=== PATIENT | female | born 1960 | race Caucasian/White ===

== ENCOUNTER 2018-03-28 22:47 | Emergency (ER) | payer OTHER ==
[~2018-03-28] VITALS: Ht 167.6 cm; Wt 99.3 kg
[~2018-03-28 22:47] MED LIST: ACYCLOVIR200 MG; ALLOPURINOL100 MG PO; D3-50001 TAB PO; NATURAL IRON65 MG PO; REVLIMID10 MG PO; ROBAXIN500 MG PO
[2018-03-28 23:00] VITALS: Ht 167.6 cm; Wt 99.3 kg
[2018-03-28 23:50] LABS: RED CELL DISTRIBUTION WIDTH 14.3 % (11.5-14.5)
[2018-03-29 00:06] LABS: CALCIUM 9.3 mg/dL (8.5-10.1); CARBON DIOXIDE 20.2 mmol/L (21-32); CREATININE SERUM 1.5 mg/dL (0.6-1.0); POTASSIUM SERUM 3.6 mmol/L (3.5-5.1)
[2018-03-29 00:19] LABS: SEGMENTED NEUTROPHILS 60 % (37-75)
[2018-03-29 00:20] LABS: BAND NEUTROPHIL 16 % (0-10); MONOCYTE 8 % (0-7); rbc morphology (normal/abnorm) NORMAL (NORMAL)
[2018-03-29 00:21] LABS: PLATELET COUNT 79 x10^3mcL (130-400)
[2018-03-29 00:26] LABS: BILIRUBIN TOTAL 0.3 mg/dL (0.20-1.00); TOTAL PROTEIN, SERUM 7.2 g/dL (6.4-8.2)
[2018-03-29 00:28] LABS: FREE T4 1.44 ng/dL (0.76-1.46); FREE THYROXINE INDEX 4.8 ug/dL (1.4-4.5); T4(THYROXINE) 12.6 ug/dL (4.7-13.3)
[2018-03-29 00:30] LABS: ALBUMIN 3.1 g/dL (3.4-5.0); CK-MB 0.8 ng/mL (0-3.6)
[2018-03-29 00:31] LABS: C REACTIVE PROTEIN 13.2 mg/dL (<=0.9)
[2018-03-29 00:52] LABS: T3 TOTAL 0.75 ng/mL
[2018-03-29 01:16] LABS: ERYTHROCYTE SED RATE 90 mm/hr (0-30)
[2018-03-29 01:28] LABS: UA SPECIFIC GRAVITY >=1.030 (1.005-1.035); microscopic required? YES; urine erythrocyte TRACE (NEGATIVE)
[2018-03-29 01:54] VITALS: BP 117/70
== END 2018-03-29 01:55 | disposition home or self-care (01) ==
LOC: ED 22:47
PROVIDERS: Specialist
DX: J20.9 Acute bronchitis, unspecified (principal); D70.9 Neutropenia, unspecified; C90.00 Multiple myeloma not having achieved remission; R55 Syncope and collapse; M10.9 Gout, unspecified; K58.9 Irritable bowel syndrome, unspecified
CPT/HCPCS: 36600; 84439; 87804; J7030; J7613; J7644; Q0092

== ENCOUNTER 2018-05-02 20:46 | Inpatient (IN) | payer OTHER ==
[~2018-05-02] VITALS: Ht 162.6 cm; Wt 104.5 kg
[~2018-05-02 20:46] MED LIST changes: -ACYCLOVIR200 MG
[2018-05-02 20:55] VITALS: Ht 162.6 cm; Wt 104.5 kg
--- NOTE | 2018-05-02 21:10 | NUR ---
PT C/O ANKLE PAIN X1 DAY. PT STS THAT SHE WORE BOOTS THAT SHE FELT WERE "CUTTING INTO" HER ANKLE, LAST NIGHT TO HER SON'S SPORTING EVENT. PT STS THAT SHE NOTICED SWELLING, AND 10/10 THROBBING PAIN IN HER ANKLE THIS A.M. SWELLING AND REDNESS NOTED TO THE LEFT ANKLE. CMS INTACT. PT DENIES FEVER/CHILLS, DENIES N/V/D. PT IS AWAKE AND ALERT. NAD NOTED AT THIS TIME. AWAITING MSE
[2018-05-02 22:12] LABS: CARBON DIOXIDE 20.8 mmol/L (21-32); CREATININE SERUM 1.5 mg/dL (0.6-1.0); POTASSIUM SERUM 4.4 mmol/L (3.5-5.1)
--- NOTE | 2018-05-02 22:12 | NUR ---
MEDICATION ADMINISTERED PER MD ORDER
[2018-05-02 22:13] LABS: BASOPHIL % 0 % (0-2); PLATELET COUNT 119 x10^3mcL (130-400); RED CELL DISTRIBUTION WIDTH 17.5 % (11.5-14.5)
--- NOTE | 2018-05-02 22:14 | NUR ---
US AT BEDSIDE
[2018-05-02 22:18] LABS: ALBUMIN 3.2 g/dL (3.4-5.0); BILIRUBIN TOTAL 0.2 mg/dL (0.20-1.00)
--- NOTE | 2018-05-02 22:55 | NUR ---
PT REPORTS NO PAIN RELIEF AFTER MEDICATION ADMIN. DR LEBLANC MADE AWARE
[2018-05-03] MEDS ORDERED: APAP/HYDROCODON1 T13 PO (00:29)
[2018-05-03] MEDS ORDERED: OXYCODONE HYDROC5 M2 PO (00:29)
[2018-05-03] MEDS ORDERED: ALPRAZOLAM1 MG PO (00:29)
[2018-05-03] MEDS ORDERED: GRALISE600 MG PO ×2 (00:30→11:41)
[2018-05-03] MEDS ORDERED: ASPIRIN CHILDRE81 MG PO (00:31)
--- NOTE | 2018-05-03 00:45 | NUR ---
X-RAY AT BEDSIDE
[2018-05-03 00:52] LABS: microscopic required? NO
[2018-05-03 01:00] LABS: UA SPECIFIC GRAVITY 1.015 (1.005-1.035); urine erythrocyte NEGATIVE (NEGATIVE)
--- NOTE | 2018-05-03 01:19 | NUR ---
MEDICATION GIVEN PER MD ORDER
--- NOTE | 2018-05-03 01:25 | NUR ---
REPORT GIVEN TO TERESSA CUEVAS
[2018-05-03 01:26] LABS: MAGNESIUM 1.9 mg/dL (1.8-2.4); PHOSPHOROUS 3.7 mg/dL (2.5-4.9)
[2018-05-03 01:55] VITALS: BP 119/83
--- NOTE | 2018-05-03 01:59 | NUR ---
RECEIVED PT FROM ED VIA [employer]. ORIENTED PT TO ROOM AND SURROUNDINGS. IV NOTED TO RAC PATENT AND INTACT. TELE 7 PLACED ON PT READING SR WITH ELEVATED T WAVE. INSTRUCTED PT ON THE USE OF CALL LIGHT FOR ASSISTANCE. ENDORSED PT TO PRIMARY NURSE WILDER
--- NOTE | 2018-05-03 02:15 | NUR ---
PT RESTING IN BED, NEW ADM. FROM ER , A/O X4, ADMIITED WITH COMPLAINTS OF LLE SWELLING, REDNESS AND PAIN. DENIES HEADACHE/DIZZINESS, BUT COMPLAINING OF PAIN 7/10 TO LT LEG, MEDICATED WITH ROXICODONE PO ORDERED. RESP. EVEN AND UNLABORED. LUNG SOUNDS CLEAR BILAT. ON ROOM AIR, SAT. 99%. NO ACUTE DISTRESS NOTED. AFEBRILE AND VITAL SIGNS STABLE. ON TELE #7, SR ON THE MONITOR, DENIES CHEST PAIN. ABD. SOFT, OBESE, BS ACTIVE, NO N/V NOTED. BRUISES TO ABD AND RLE. LLE SWOLLEN AND REDDENED. PULSES PALPABLE. ABLE TO MOVE ALL EXTS. PICTURES TAKEN AND DOCUMENTED.STARTED ON IVF, NS AT 100ML/HR, INFUSING VIA RAC. KEPT COMFORTABLE. CALL LIGHT WITHIN REACH. WILL CONTINUE TO MONITOR.
--- NOTE | 2018-05-03 03:15 | NUR ---
EYES CLOSED. APPEARS ASLEEP. EASILY AROUSABLE. LLE ELEVATED ON PILLOW. NO ACUTE DISTRESS NOTED. WILL CONTINUE TO MONITOR.
--- NOTE | 2018-05-03 03:45 | NUR ---
DOOZING OFF AND ON, COMPLAINING OF LLE , 07/30, MEDICATED WITH NORCO PO ORDERED. WILL CONTINUE TO MONITOR.
[2018-05-03 05:42] VITALS: BP 122/74
--- NOTE | 2018-05-03 06:19 | NUR ---
SLEEPING AT THIS TIME. EASILY AROUSABLE. RESP. EVEN AND UNLABORED, NO ACUTE DISTRESS NOTED. AFEBRILE AND VITAL SIGNS STABLE.IVF INTACT AND INFUSING WELL, SITE CLEAR. NO COMPLAINTS OF PAIN OR ANY DISCOMFORT AT THIS TIME. KEPT COMFORTABLE. WILL ENDORSE TO INCOMING NURSE.
--- NOTE | 2018-05-03 07:30 | NUR ---
PATIENT RESTING IN BED, FAMILY AT BEDSIDE. TELE MONITOR IN PLACE, DENIES CHEST PAIN. SWELLING AND REDNESS NOTED TO LLE. SCD IN PLACE, PATIENT ON ELIQUIS (SEE EMAR). PATIENT ON ROOM AIR, NO SOB NOTED. NS IV INFUSING TO RAC AT 100 ML/HR. NO REDNESS, SWELLING OR PAIN AT SITE. INSTRUCTED PATIENT TO CALL FOR ASSISTANCE WHEN NEEDED, CALL LIGHT WITHIN REACH. BED IN LOW POSITION, SIDE RAILS UP X2, FOR SAFETY PRECAUTION. WILL CONTINUE TO MONITOR.
[2018-05-03 08:01] LABS: AMPHETAMINE QUAL UR NONE DETECTED (See below)
[2018-05-03 08:30] VITALS: BP 118/72
--- NOTE | 2018-05-03 10:23 | NUR ---
PATIENT COMPLAIN OF SEVERE PAIN TO LLE 10/30, EDUCATED PATIENT IN RELAXTION TECHNQUES SUCH DEEP BREATHING, AND MEDICATED PT WITH NORCO PER PROTOCOL (SEE EMAR). WILL CONTINUE TO MONITOR.
[2018-05-03] MEDS ORDERED: REVLIMID5 MG PO (11:42)
[2018-05-03 12:10] VITALS: BP 101/54
[2018-05-03 13:29] LABS: BASOPHIL % 0.2 % (0-2); PLATELET COUNT 100 x10^3mcL (130-400); RED CELL DISTRIBUTION WIDTH 16.7 % (11.5-14.5)
[2018-05-03 14:57] LABS: CALCIUM 7.7 mg/dL (8.5-10.1); CARBON DIOXIDE 22.2 mmol/L (21-32); CREATININE SERUM 1.3 mg/dL (0.6-1.0); POTASSIUM SERUM 3.8 mmol/L (3.5-5.1)
[2018-05-03 16:30] VITALS: BP 109/65
--- NOTE | 2018-05-03 17:46 | NUR ---
PHYSICAL THERAPY AT BEDSIDE.
--- NOTE | 2018-05-03 18:27 | NUR ---
PATIENT RESTING IN BED. NO ACUTE CHANGES THROUGH OUT SHIFT, PT STABLE. TELE MONITOR IN PLACE, DENIES CHEST PAIN. NO SOB NOTED, ON ROOM AIR. NS IV TO RAC INFUSING AT 100ML/HR. NO REDNESS SWELLING OR PAIN AT SITE. CALL LIGHT WITHIN REACH, BED IN LOW POSITION. WILL ENDORSE REPORT TO NIGHT NURSE.
--- NOTE | 2018-05-03 19:15 | NUR ---
RECEIVED PT IN BED C/O LEFT LEG PAIN 11/30.WILL MEDICATE ORDERED. NO SOB NOTED.IV SITE PATENT AND INTACT. BED IN LOWEST POSITION,CALL LIGHT WITHIN REACH. WILL CONTINUE TO MONITOR.FAMILY AT BEDSIDE.
[2018-05-03 19:20] VITALS: BP 119/43
--- NOTE | 2018-05-03 20:11 | NUR ---
MEDICATED MORPHINE 2MG IVP ORDERED. PT C/O LEFT LEG 11/30.WILL CONTINUE TO MONITOR.
--- NOTE | 2018-05-03 20:50 | NUR ---
REASSESSED PT. PER PT STILL HAVING PAIN 08/30. SPOKE TO DR RANDLE REGARDING THE COMPLAIN. WAITING FOR NEW ORDER.
--- NOTE | 2018-05-03 21:32 | NUR ---
PT FEELS ANXIOUS. MEDIACTED XANAX 1MG PO ORDERED. WILL CONTINUE TO MONITOR.
--- NOTE | 2018-05-04 05:10 | NUR ---
PT AOX4.NO DISTRESS NOTED. DENIES ANY PAIN AT THIS TIME. BED IN LOWEST POSITION,CALL LIGHT WITHIN REACH. WILL CONTINUE TO MONITOR.
[2018-05-04 05:52] VITALS: BP 96/47
[2018-05-04 07:00] LABS: PLATELET COUNT 92 x10^3mcL (130-400); RED CELL DISTRIBUTION WIDTH 17.2 % (11.5-14.5)
--- NOTE | 2018-05-04 07:05 | NUR ---
RECEIVED REPORT FROM MILK BOTTLER NURSE. PATIENT RESTING COMFORTABLY IN BED AT THIS TIME. NO APPARENT DISTRESS OR DISCOMFORT NOTED. BREATHING EVEN AND UNLABORED. NO INDICATION OF CHEST PAIN AT THIS TIME. IV PATENT AND INTACT. ALL NEEDS ATTENDED TO. WILL CONTINUE TO MONITOR
--- NOTE | 2018-05-04 07:19 | NUR ---
CARE ENDORSED TO DAY NURSE
[2018-05-04 07:22] LABS: CALCIUM 8.4 mg/dL (8.5-10.1); CARBON DIOXIDE 24.8 mmol/L (21-32); CREATININE SERUM 1.3 mg/dL (0.6-1.0); POTASSIUM SERUM 4.2 mmol/L (3.5-5.1)
[2018-05-04 08:30] VITALS: BP 100/62
--- NOTE | 2018-05-04 08:55 | NUR ---
PATIENT C/O LEFT LEG PAIN AT THIS TIME. PRN MORPHINE ADMINISTERED (SEE EMAR) NO ADVERSE EFFECTS NOTED. ALL NEEDS ATTENDED TO. WILL CONTINUE TO MONITOR
--- NOTE | 2018-05-04 09:30 | NUR ---
ALL MORNING MEDICATIONS ADMINISTERED. PATIENT TOLERATED MEDICATIONS WELL. NO ADVERSE EFFECTS NOTED. ALL NEEDS ATTENDED TO. WILL CONTINUE TO MONITOR
--- NOTE | 2018-05-04 11:13 | NUR ---
PATIENT C/O STABBING LEFT LEG PAIN AT THIS TIME. PATIENT MEDICATED WITH PRN NORCO. NO ADVERSE EFFECTS NOTED. ALL QUESTIONS AND CONCERNS ADDRESSED. ALL NEEDS ATTENDED TO. WILL CONTINUE TO MONITOR
[2018-05-04 12:30] VITALS: BP 99/56
[2018-05-04 12:35] LABS: ATYPICAL LYMPH 3 %; BAND NEUTROPHIL 2 % (0-10); BASOPHIL 0 % (0-2); MONOCYTE 15 % (0-7); SEGMENTED NEUTROPHILS 71 % (37-75)
[2018-05-04 12:36] LABS: PLATELET MORPHOLOGY PLATELETS DECREASED; rbc morphology (normal/abnorm) ABNORMAL (NORMAL)
--- NOTE | 2018-05-04 13:00 | NUR ---
PATIENT SITTING UP IN BED EATING LUNCH AT THIS TIME. PATIENT C/O LEFT LEG PAIN AT THIS TIME. WILL MEDICATE ORDERED. ALL NEEDS ATTENDED TO. WILL CONTINUE TO MONITOR
--- NOTE | 2018-05-04 13:57 | NUR ---
ATTEMPTED FOR PHYSICAL THERAPY SESSION SCHEDULED, PATIENT FOUND IN THE BATHROOM WITH IV POLE ON TOW, C/O PAIN AND DO NOT WANT TO PARTICIPATE ON SKILLED SESSION TODAY
[2018-05-04 16:15] VITALS: BP 95/52
--- NOTE | 2018-05-04 17:57 | NUR ---
PRN PAIN MEDICATIONS ADMINISTERED AT THIS TIME. NO ADVERSE EFFECTS NOTED. ALL QUESTIONS AND CONCERNS ADDRESSED. ALL NEEDS ATTENDED TO. WILL CONTINUE TO MONITOR
--- NOTE | 2018-05-04 18:58 | NUR ---
PATIENT RESTING COMFORTABLY IN BED AT THIS TIME. NO APPARENT DISTRESS NOTED IV PATENT AND INTACT. ALL QUESTIONS AND CONCERNS ADDRESSED. SAFETY PRECAUTIONS MAINTAINED. ALL NEEDS ATTENDED TO. WILL ENDORSE ALL CARE TO ELECTROPLATING SALES REPRESENTATIVE NURSE
[2018-05-04 20:26] VITALS: BP 118/61
--- NOTE | 2018-05-04 23:25 | NUR ---
PATIENT RECEIVED AWAKE, ALERT, ORIENTED X4 IN BED. FAMILY MEMBERS AT THE BEDSIDE. RESPIRATION EVEN AND UNLABORED, ON ROOM AIR. ONGOING 0.9% NS AT 100 CC/HR INFUSING WELL AT THE RIGHT ANTECUBITAL AREA. SWELLING/REDNESS TO LLE.VOIDING FREELY WITHOUT DIFFICULTY. ON TELE #7. WILL CONTINUE TO MONITOR.
[2018-05-05 05:49] VITALS: BP 113/71
--- NOTE | 2018-05-05 06:25 | NUR ---
PATIENT RESTING IN BED. RESPIRATION EVEN AND UNLABORED, ON ROOM AIR. ONGOING 0.9% NS AT 100 CC/HR INFUSING WELL. C/O LLE PAIN. MEDICATED WITH MORPHINE 2MG IVP ORDERED. ELEVATED LLE ON A PILLOW. ASSISTED WITH NEEDS. SAFETY OBSERVED. PLACED BED IN THE LOWEST POSITION. PLACED CALL LIGHT WITHIN REACH AT ALL TIMES.
[2018-05-05 06:33] LABS: CALCIUM 8.1 mg/dL (8.5-10.1); CREATININE SERUM 1.4 mg/dL (0.6-1.0); POTASSIUM SERUM 4.2 mmol/L (3.5-5.1)
[2018-05-05 07:27] LABS: BASOPHIL % 0.6 % (0-2)
[2018-05-05 07:28] LABS: PLATELET COUNT 98 x10^3mcL (130-400); RED CELL DISTRIBUTION WIDTH 16.9 % (11.5-14.5)
--- NOTE | 2018-05-05 07:30 | NUR ---
PT ENDORSE TO ME THIS MORNING. LAYING IN BED RESTING. WATCHING T.V. AA/O X4. BREATHING EVEN AND UNLABORED ON RA. TELE 7 SR / HR 80, DENIES ANY CP OR PRESSURE. C/O LEFT LOWER LEG SWELLING, WILL MEDICATED PER EMAR FOR 10/10 PAIN. BOWEL SOUNDS ACTIVE IN ALL FOUR QUADS. LAST BM 05/05, NORMAL. VOIDS FREELY. GEN WEAKNESS DUE TO LLE. NS TO RAC INFUSING AT 100ML/HR, NO REDNESS OR SWELLING NOTED. CALL LIGHT IN REACH. BED IN LOW POSITION. WILL CONTINUE PLAN OF CARE.
--- NOTE | 2018-05-05 08:00 | NUR ---
PT C/O LLE PAIN 10/10, MEDICATED PER EMAR WITH NORCO. WLL CONTINUE TO MONITOR.
[2018-05-05 09:23] VITALS: BP 102/52
[2018-05-05 12:27] VITALS: BP 99/56
--- NOTE | 2018-05-05 13:20 | NUR ---
PT TOLERATED 100% OF LUNCH, DENIES ANY LLE PAIN AT THIS TIME. MEDICATED PER EMAR FOR PAIN DISCOMFORT. WILL CONTINUE TO MONITOR.
[2018-05-05 16:12] VITALS: BP 145/52
--- NOTE | 2018-05-05 16:33 | NUR ---
PT JUST WOKE UP FROM A NAP, C/O 10 LLE PAIN, MEDICATED PER EMAR.
--- NOTE | 2018-05-05 18:45 | NUR ---
NO ACUTE CHANGES AT THIS TIME. NO ACUTE RESP DISTRESS OR SOB NOTED. BREATHING EVEN AND UNLABORED ON RA/ DENIES ANY LLE PAIN AT THIS TIME/ MEDICATED PER EAMR. IV TO THE RAC INTACT AND PATENT, INFUSING AT 100ML/HR, NO REDNESS OR SWELLING NOTED. WILL ENDORSE TO INCOMING RN.
[2018-05-05 19:57] VITALS: BP 136/75
--- NOTE | 2018-05-05 20:31 | NUR ---
PT C/O HEADACHE TYLENOL 650MG GIVEN , WILL CON'T TO MONITOR PT CLOSELY.
--- NOTE | 2018-05-05 21:00 | NUR ---
RECEIVED PT IN BED AAOX4 NO ACUTE DISTRESS NOTED, LUNG SOUNDS CTA , ABD SOFT BS ACTIVE X4, PT C/O LLE PAIN AND HEADACHE , WAS MEDICATED WITH TYLENOL , LLE SWELLING ELEVATED ON THE PILLOW , PEDAL PULSE + , SKIN RED/WARM TO TOUCH PIV TO RAC INTACT INFUSING WELL ,CALL LIGHT WITHIN PT'S REACH , WILL CON'T TO MONITOR PT CLOSELY.
--- NOTE | 2018-05-05 22:46 | NUR ---
MEDICATED PT WIHT NORCO AND XANAX ,PT C/O LEFT LEG PAIN 12/30. WILL CON'T TO MONITOR AND ASSIST PT WITH CARE .
--- NOTE | 2018-05-05 22:53 | NUR ---
I HAVE REVIEWED THE DATA COLLECTION BY COPPER PLATE PRINTER (NAME): IBIS MCKEON ENTERED ON (DATE/TIME): 05/05 I CONCUR WITH THE DATA AND ANY EXCEPTIONS OR COMMENTS ARE LISTED BELOW: PATIENT'S PLAN OF CARE WAS DISCUSSED AND REVIEWED WITH COPPER PLATE PRINTER: IBIS MCKEON
--- NOTE | 2018-05-06 00:47 | NUR ---
PT'S IN BED AWAKE TALKING TO DR RIVERA. TELE NSR , PIV INTACT INFUSING WELL.
[2018-05-06 05:29] VITALS: BP 108/49
--- NOTE | 2018-05-06 06:36 | NUR ---
NO CHANGES OF CONDITION NOTED, ALL DUE MEDS GIVEN NO REACTION NOTED , PT C/O FOOT PAIN WILL MEDICATE PT ORDERED .LEFT FOOT ELEVATED ON THE PILLOW ORDERED, DEVAN COLON .
[2018-05-06 06:47] LABS: CALCIUM 8.8 mg/dL (8.5-10.1); CREATININE SERUM 1.4 mg/dL (0.6-1.0); POTASSIUM SERUM 4.1 mmol/L (3.5-5.1)
--- NOTE | 2018-05-06 07:30 | NUR ---
PT ENDORSE TO ME THIS MORNING .LAYING IN BED RESTING. AA/OX4 BREATHING EVEN AND UNLABORED ON RA/LUNGS CLEAR. TELE NSR HR 98, DENIES ANY CP OR PRESSURE. BOWEL SOUNDS ACTIVE IN ALL FOUR QUADS. VOIDS FREELY. GEN WEAKNNESS DUE TO LLE. LLE ELEVATED ON TWO PILLOWS PER DR. RIVERA ORDERS. IV TO THE RAC INTACT AND PATENT. NO REDNESS OR SWELLING NOTED, INFUSING AT 100ML/HR, NO REDNESS OR SWELLING NOTED. CALL LIGHT IN REACH. BED IN LOW POSITION. WILL CONTINUE PLAN OF CARE.
[2018-05-06 08:59] LABS: BASOPHIL % 2.4 % (0-2); PLATELET COUNT 98 x10^3mcL (130-400); RED CELL DISTRIBUTION WIDTH 16.5 % (11.5-14.5)
[2018-05-06 09:19] VITALS: BP 116/69
[2018-05-06 09:26] VITALS: BP 99/56
--- NOTE | 2018-05-06 10:00 | NUR ---
PT SITTING UP IN BED HAVING HER BREAKFAST. TOLERATED 100% OF HER BF. IS C/O LLE PAIN 12/30, MEDICATED KIMBERLY EMAR. WILL CONTINUE PLAN OF CARE.
--- NOTE | 2018-05-06 12:30 | NUR ---
PT UP FROM A NAP IS C/O LLE PAIN 12/30/ MEDICATED PER EMAR WITH NORCO. CALL LIGHT IN REACH. WILL CONTINUE PLAN OF CARE.
[2018-05-06 13:32] VITALS: BP 121/76
--- NOTE | 2018-05-06 14:46 | NUR ---
PT C/O LLE PAIN, MEDICATED PER EMAR / WILL CONTINUE TO MONITOR.
--- NOTE | 2018-05-06 15:34 | NUR ---
PHYSICAL THERAPY DAILY NOTES CO-SIGN All documentation done by the Director Of Services for 05/06/18 has been reviewed. I agree with the documentation. Reviewed/Co-Signed by: Roberta Gil PT Documentation Done by:HEATHER SANDOVAL
[2018-05-06 18:00] VITALS: BP 116/74
--- NOTE | 2018-05-06 18:58 | NUR ---
NO ACUTE CHANGES AT THIS TIME.NO ACUTE RESP DISTRESS OR SOB NOTED. MEDICATED PER EMAR FOR LLE AT THIS TIME. IV TO THE RAC INTACT AND PATENT, INFUSING AT 100ML/HR/ TOLERATING WELL. LLE CURRENTLY ELEVATED ON TWO PILLOWS. WILL ENDORSE TO INCOMING RN.
--- NOTE | 2018-05-06 19:30 | NUR ---
RECEIVED PT FROM PREVIOUS SHIFT. PT A/OX4. SITTING UP IN BED. LLE WITH RENESS, SWELLING. OUTLINED TO MONITOR SWELLING. FAMILY AT BEDSIDE. CALL LIGHT WITHIN REACH, BED IN LOW POSITION. WILL CONTINUE TO MONITOR.
[2018-05-06 20:43] VITALS: BP 104/64
--- NOTE | 2018-05-07 00:31 | NUR ---
PT RESTING IN NO ACUTE DISTRESS. RR EVEN AND UNLABORED. CALL LIGHT WITHIN REACH, BED IN LOW POSITION. WILL CONTINUE TO MONITOR.
[2018-05-07 05:49] VITALS: BP 110/49
[2018-05-07 08:04] LABS: PLATELET COUNT 119 x10^3mcL (130-400); RED CELL DISTRIBUTION WIDTH 16.1 % (11.5-14.5)
[2018-05-07 08:07] LABS: CALCIUM 8.9 mg/dL (8.5-10.1); CARBON DIOXIDE 25.2 mmol/L (21-32); CREATININE SERUM 1.3 mg/dL (0.6-1.0); POTASSIUM SERUM 4.1 mmol/L (3.5-5.1)
[2018-05-07 08:30] VITALS: BP 102/61
--- NOTE | 2018-05-07 09:52 | NUR ---
AT 0705 - RECEIVED PATIENT FROM NIGHT NURSE. AWAKE, ALERT AND ORIETNED X 4. MONITOR SHOWING SINUS RHYTHM; RATE 90'S. IV INFUSING NS AT 100ML/HR. REDDNESS OF LLE WITHIN MARKED LINES. AT 0745 - SITTING ON SIDE OF BED FOR BREAKFAST. AT 0805 - MEDICATED WITH IV MORPHINE FOR PERSISTANT PAIN IN LLE. AT 0830 - PATIENT AMBULATED TO BATHROOM WITH ASSISTANCE. PT AT BEDSIDE. AT 0935 - PATIENT NOW RESTING IN BED. PAIN UNDER CONTROL AT THIS TIME.
[2018-05-07 10:53] LABS: SEGMENTED NEUTROPHILS 80 % (37-75)
[2018-05-07 10:54] LABS: ATYPICAL LYMPH 4 %; BAND NEUTROPHIL 0 % (0-10); BASOPHIL 0 % (0-2); MONOCYTE 4 % (0-7); rbc morphology (normal/abnorm) ABNORMAL (NORMAL)
[2018-05-07 10:56] LABS: PLATELET MORPHOLOGY PLATELETS DECREASED
[2018-05-07 12:00] VITALS: BP 105/61
--- NOTE | 2018-05-07 15:02 | NUR ---
AT 1225 - MEDICATE WITH NORCO PER EMAR. PATIENT ENCOURAGED TO KEEP LLE ELEVATED TO HELP IN PAIN MENAGEMENT. AT 1405 - REPROTS THAT PAIN IS STIL PRESENT, SO PATIENT NOW MEDICATED WITH 2 MG MORPHINE IV.
[2018-05-07 17:00] VITALS: BP 115/59
--- NOTE | 2018-05-07 17:20 | NUR ---
PHYSICAL THERAPY DAILY NOTES CO-SIGN All documentation done by the Field Interviewer for 05/07/18 has been reviewed. I agree with the documentation. Reviewed/Co-Signed by: Roberta Gil PT Documentation Done by:HEATHER SANDOVAL
--- NOTE | 2018-05-07 18:58 | NUR ---
VSS. AFEBRILE. PAIN UNDER CONTROL WIH ALTERNATING NORCO AND MORPHINE PER EMAR. REDDNESS AND EDEMA OF LLE REMAINS WITHIN MARKED LINES AND APPEARS TO BE SUBSIDING. IV INFUSING NS AT 100 ML/HR. EATING A LOW FAT DIET. PATIENT USING BEDSIDE COMODE FOR TOILET NEEDS. WILL ENDORSE CARE TO NIGHT NURSE.
--- NOTE | 2018-05-07 19:32 | NUR ---
AAO X4 VERBAL DENIES PAIN NO DISTRESS LUNGS CTA, ON RA, PT HAS LLE +2 EDEMA AND REDNESS REMAINED IN THE MARKINGS, NO SKIN LEAKING, KEPT ELEVATED WITH PILLOWS, IV ACCESS RAC PATENT NON INFIL, IVF NS INFUSING @ 100CC/HR IV ACCESS RAC PATENT NON INFIL, ON ATB IV PENICILLIN G AND CLEOCIN NO ADV REACTION, TELE #7 INPLACED SR IN THE MONITOR, V/S STABLE SHIFT ASSESSMENT DONE ATTENDED NEEDS CONT TO MONITOR.
[2018-05-07 20:12] VITALS: BP 132/68
--- NOTE | 2018-05-08 01:23 | NUR ---
SEEN BY VICENTE THOMASO, PER PT NOT READY TO GO HOME FOR NOW, WANTED TO ELEVATE LEFT LEG ABOVE THE HEART, 4 PILLOWS PILED TO ELEVATE THE LEG, WILL CONT TO MONITOR.
--- NOTE | 2018-05-08 04:04 | NUR ---
NORCO PO GIVEN FOR C/O LT LEG PAIN 7/10 PER ASSESSMENT, V/S STABLE CONT TO MONITOR.
[2018-05-08 05:35] VITALS: BP 101/53
--- NOTE | 2018-05-08 05:36 | NUR ---
NORCO PO GIVEN EARLIER IS INEFFECTIVE PT ASKING FOR MORPHINE IV, PAIN SCALED 8/10, MEDS GIVEN PER PRN ORDER, V/S STABLE, CONT TO ELEVATE LEFT LEG ABOVE HEART LEVEL PER MD'S INSTRUCTION, CONT TO MONITOR.
[2018-05-08 07:52] LABS: CALCIUM 8.4 mg/dL (8.5-10.1); CARBON DIOXIDE 25.2 mmol/L (21-32); CREATININE SERUM 1.3 mg/dL (0.6-1.0); POTASSIUM SERUM 4.2 mmol/L (3.5-5.1)
--- NOTE | 2018-05-08 07:52 | NUR ---
AT 0730 - RECEIVED PATIENT FROM NIGHT NURSE. AWAKE, ALERT AND ORIENTED. MONITOR SHOWING SINUS RHYTHM; RATE 80'S. LLE REDDNESS AND EDEMA; WARM TO TOUCH AND PATIENT C/O PAIN THAT HAS MODERATE RELIEF WITH NORCO AND MORPHINE. ELEVATED ON 4 PILLOWS AND PATIENT ENCOURAGED TO KEEP EXTREMETY ELEVATED. SEEN BY WINDOW CUTTER OLIVEIRA. QUESTIONS AND NEEDS ADDRESSED.
[2018-05-08 08:23] LABS: PLATELET COUNT 124 x10^3mcL (130-400); RED CELL DISTRIBUTION WIDTH 15.7 % (11.5-14.5)
[2018-05-08 09:16] VITALS: BP 99/50
--- NOTE | 2018-05-08 10:09 | NUR ---
AT 0935 - MEDICATED WITH IV MORPHINE FOR C/O PAIN 10/30 IN [facility].
[2018-05-08 12:39] VITALS: BP 115/71
--- NOTE | 2018-05-08 12:41 | NUR ---
PATIENT APPEARS TO HAVE MORE PAIN TODAY. NOW MEDICATED WITH NORCO 10/325 PER EMAR.
--- NOTE | 2018-05-08 13:03 | NUR ---
PHYSICAL THERAPY DAILY NOTES CO-SIGN All documentation done by the [employer] for 05/08/18 has been reviewed. I agree with the documentation. Reviewed/Co-Signed by: Roberta Gil PT Documentation Done by:HEATHER SANDOVAL
[2018-05-08 17:29] VITALS: BP 110/63
--- NOTE | 2018-05-08 18:31 | NUR ---
VSS. AFEBRILE. LLE REMAINS RED, INFLAMMED, EDEMATOUS AND PAINFUL FOR PATIENT. PATIENT KEEPING IT ELEVATED. USES BEDSIDE COMODE FOR TOILET NEEDS. ACTIVITY LIMITED BY PAIN. RECEIVING IV MORPHINE AND PO NORCO FOR THE PAIN. IV INFUSING NS AT 100 ML/HR. ALL SCHEDULED ANTIBIOTICS ADMINSITERED ORDERED. WILL ENDORSE CARE TO NIGHT NURSE.
--- NOTE | 2018-05-08 19:48 | NUR ---
PT SEATED UP AT THE EDGE OF THE BED DANGLING BLE DOWN, ENCOURAGED TO ELEVATE LLE TO PROMOTE GOOD BLD CIRCULATION PER MD'S INSTRUCTION, MIKEL, PER PT SHE'S TIRED PUTTING UP LLE SOMETIMES SO SHE HAS TO PUT IT DOWN, REDNESS AND SWELLING TO LLE STILL WITHIN THE MARKINGS, DENIES PAIN AT THIS TIME JUST MEDICATED FOR PAIN, PER REPORT WAS MEDICATED ROUND THE CLOCK TO CONTROL THE PAIN, CONT ON ATB IV ORDERED, NO ADV REACTION, IVF NS INFUSING @ 100CC/HR IV ACCESS @ RAC PATENT NON INFIL, TELE #7 INPLACED SR IN THE MONITOR. SHIFT ASSESMENT DONE ATTENDED NEEDS CALL LIGHT AT REACH CONT TO MONITOR.
[2018-05-08 20:57] VITALS: BP 125/71
--- NOTE | 2018-05-08 21:33 | NUR ---
SEEN BY DR RIVERA, SPOKE TO DR CONTEH RE PT'S CONDITION AND PLAN OF CARE. MRI TO LEFT LEG AND FOOT ORDERED, ALSO INFORMED DR RIVERA AND DR CONTEH THAT CURRENT PAIN MEDS NOT HELPING PT'S IN A LOT OF PAIN, ALSO MD AWARE OF THE FLUID FILLED BLISTER TO LT ANKLE, INSTRUCTED PT NOT TO PUT PRESSURE TO THE SITE, CONT TO MONITOR.
--- NOTE | 2018-05-08 22:32 | NUR ---
PT ASKING MEDS FOR ANXIETY DR CONTEH MADE AWARE AND ORDERED XANAX PO PRN, MEDS GIVEN ORDERED, CONT TO MONITOR.
--- NOTE | 2018-05-08 22:34 | NUR ---
ROCEPHIN IV INITIAL DOSE HANGED ORDERED, NO ADV REACTION CONT TO MONITOR.
[2018-05-09 05:13] VITALS: BP 99/55
[2018-05-09 06:06] LABS: PLATELET COUNT 113 x10^3mcL (130-400); RED CELL DISTRIBUTION WIDTH 15.8 % (11.5-14.5)
[2018-05-09 06:10] LABS: CALCIUM 8.7 mg/dL (8.5-10.1); CARBON DIOXIDE 25.4 mmol/L (21-32); CREATININE SERUM 1.2 mg/dL (0.6-1.0)
--- NOTE | 2018-05-09 06:13 | NUR ---
PT SLEEPING AT THIS TIME, BP 99/55, LEFT LOWER LEG KEEP ELEVATED WITH THE PILLOW ABOVE THE HEART, PRESSURE OFF TO UNPOPPED BLISTER @ LT ANKLE, IVF INFUSING WELL DUE MEDS GIVEN, WILL CONT TO MONITOR.
[2018-05-09 06:30] LABS: BAND NEUTROPHIL 3 % (0-10); MONOCYTE 15 % (0-7); SEGMENTED NEUTROPHILS 44 % (37-75)
[2018-05-09 06:31] LABS: PLATELET MORPHOLOGY PLATELETS NORMAL; rbc morphology (normal/abnorm) NORMAL (NORMAL)
[2018-05-09] MEDS ORDERED: DEXAMETHASONE4 MG PO (08:05)
[2018-05-09 09:54] VITALS: BP 113/64
--- NOTE | 2018-05-09 12:42 | NUR ---
AT 0720 - RECEIVED PATIENT FROM NIGHT NURSE. AWAKE, ALERT AND ORIENTED. MONITOR SHOWING SINUS RHYHTM. PATIENT SITTING ON SIDE OF BED. LLE RE, EDEMATOUS WITH 2.0 CM X 1.5 CM BLISTER ON LATERAL ASPECT OF ANKLE. C/O MODERATE TO SEVERE PAIN IN LEFT LEG. AT 0750 - MEDICATED WITH IV MORPHINE 2 MG PER EMAR. MED RECONCILLIATION UPDATED - PATIENT TAKES DEXAMETHASONE 20 MG 2 X/WEEK. COMMISSARY AGENT OLIVEIRA NOTIFIED. AT 0900 - PATIENT STIL HAVING A LOT OF PAIN. NOW GIVEN NORCO. AT 1045 - SEEN BY DR ADAME. HE SPOKE WITH PATIENT AT LENGTH REGARDING TREATMENT. HE RECOMMENDED WRAPPING THE LEG IN DYLAN BANDAGE FOR COMFORT AND CONTINUING WITH ANTIBIOTICS AT THIS TIME. AWAITING MRI. AT 1100 - LLE WRAPPED IN DYLAN BANDAGE. MEDICATED WITH IV MORPHINE PER EMAR. AT 1205 - PATIENT REPORTS THAT PAIN APPEARS BETTER CONTROLLED SINCE LEG HAS BEEN WRAPPED. GIVEN TODAY'S DOSE OF DEXAMETHASONE PER EMAR.
--- NOTE | 2018-05-09 13:59 | NUR ---
1. Recommend continue with low fat diet per doctors recommendations.
--- NOTE | 2018-05-09 13:59 | NUR ---
Initial Nutrition Assessment Dx: DVT PMHx: gout and MM currently followed at [facility] PSHx: achilles tendon Labs:(05/09) Cr:1.2H, WBC:2.5L, H/H:01/18L Meds:Cleocin, Colace, Eliquis, Lactinex, Morphine, Neurontin, Stanton, Penicillin, NS IV, Vitamin D, Xanax, Zofran, Zovirax, Zyloprim, Rocephin Diet: low fat PO Intake: (05/07) B:85% L:85% D:85% (05/08) B:100% L:30% D:40% (05/09) B:80% Ht:64in, 5'4" Wt:230#,104.525kg BMI: 39.6kg/m2 (obesity class II) IBW:120#,55kg %IBW:192% UBW:231# Age: 57 y/o female Food Allergies:NKFA Skin:left leg redness and swelling Wallace: Edema:swelling to left leg GI: active bowel sounds Last BM:05/07 Pt was admitted with c/o worsening LLE swelling associated pain and erytmea x 1 day, per H&P. Per progress note 05/09, pt admits to left leg pain with ambulation and excertion. Pt to have MRI of LLE. 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 ID consulft for cellulitis and started on Clindamycin. During visit, pt was seen laying in bed. Pt reports to having a good appetite with no c/o N/V/D/C. Pt was awaiting for MRI to be done. Pt had no nutrition questions at this time. Problem with: N/V/D/C:no Problems with: Chewing:/Swallowing: No Current appetite: Good Recent wt change:+1# %wt change:0.04% Vitamin/Supplement use:Vitamin D3 Special diet at home:Regular Physical activity:No Education: pt declined nutrition education at this time. Estimated Nutritional Needs Based on body weight ideal 55kg Energy:1650-1925kcal/d (30-35kcal/kg for myeloma) Protein: 66-83g/d (1.2-1.5g/kg for myeloma) Fluid: 1650*1925ml/d (1 ml/kcal) or per doctor Nutrition Diagnosis 1. Increased nutrtient needs related to increased metabolic demands as evidenced by pt with myeloma. Intervention 1. Recommend continue with low fat diet per doctors recommendations. Monitor/Evaluate Goal: PO intake at least 75% of estimated needs Monitor: PO intake, Labs, GI function F/U in 7 days as low risk 05/16
[2018-05-09 14:00] VITALS: BP 100/58
--- NOTE | 2018-05-09 15:10 | NUR ---
SPOKE WITH LEÓN FROM RADIOLOGY. MRI WILL BE DONE EITHER TODAY BY 2000 HR OR TOMORROW BEFORE NOON. PATIENT REPORTS THAT PAIN IS LESS SINCE LEG HAS BEEN BANDAGED. CALLED DANNA AT [facility] TO RETURN HIS CALL , BUT WAS UNABLE TO SPEAK WITH HIM.
[2018-05-09 17:00] VITALS: BP 123/72
--- NOTE | 2018-05-09 18:30 | NUR ---
VSS AND WNL. AFEBRILE. PAIN UNDER CONTROL WITH IV MORPHINE Q 3 HR. DRESSING TO LLE HAD SMALL DAMP AREA AT SITE OF BLISTER 3 HR AGO. NO FURTHER DISCHARGE. BANDAGE REMAINS IN PLACE AND INTACT. PATIENT REPROTS BETTER PAIN CONTROL SINCE LEG WAS WRAPPED. IV INFUSION REMAINS AT 100 ML/HR. ALL SCHEDULED ANTIBIOTICS ADMINSITERED PRESCRIBED. WILL ENDORSE CARE TO NIGHT NURSE.
--- NOTE | 2018-05-09 19:30 | NUR ---
PT IS A/O x4. ON TELE #17, NSR. DENIES ANY CHEST PAIN OR PRESSURE. PULSES ARE PRESENT. +2 EDEMA ON LLE. PT ABLE TO MOVE ALL FINGERS AND TOES. CAP REFIL <3 SEC. DENIES ANY NUMBNESS OR TINGLING. LUNGS CLEAR IN ALL FEILDS. ON RA, DENIES ANY SOB. EQUAL CHEST RISE AND FALL. BOWEL SOUNDS ACTIVE x4. DENIES ANY ABD DISTRESS. DYLAN BAND WRAPPED AROUND LLE, CDI. PT HAS LLE ELEVATED ON 2 PILLOWS. DENIES ANY PAIN AT THIS TIME. IV ON RAC INTACT AND PATENT. FLUIDS RUNNING PER EMAR, NO SIGN OF INFILTRATION OR IRRITATION. DAUGHTER AT BEDSIDE. BED AT LOWEST SETTING. CALL LIGHT WITHIN REACH. SIDE RAILS UP x2 FOR PT SAFETY. WILL CONTINUE TO [facility].
[2018-05-09 21:40] VITALS: BP 119/77
--- NOTE | 2018-05-10 01:25 | NUR ---
PT IS RESTING IN BED WITH BOTH EYES CLOSED, BREATHING EVEN AND UNALBORED. NO SIGN OF DISTRESS NOTED. IV INTACT AND PATENT. LLE ELEVATED ON PILLOWS. BED AT LOWEST SETTING. CALL LIGHT WITHIN REACH. WILL CONTINUE TO MONITOR.
[2018-05-10 05:50] VITALS: BP 126/76
--- NOTE | 2018-05-10 06:45 | NUR ---
PT RESTING IN BED. GAVE PRN PAIN MEDICATION. PT STATED IT IS HELPING AND PAIN IS GOING DOWN. DYLAN WRAP LLE WAS REINFORCED. NO ACUTE EVENT OCCURED AT NIGHT. BED IS AT LOWEST SETTING. CALL LIGHT WITHIN REACH. WILL ENDORSE TO AM NURSE.
--- NOTE | 2018-05-10 07:15 | NUR ---
RECEIVED PT SITTING UP IN BED. NO ACUTE DISTRESS. AAOX4. RESP EVEN AND UNLABORED ON RA. VERBALIZED ADEQUATE RELIEF FROM PAIN MED. LLE WITH DYLAN WRAP, SWELLING NOTED. ELEVATED WITH 3 PILLOWS. PT AMBULATORY. IV TO RAC, NO REDNESS OR SWELLING TO IV SITE. BED IN LOW POSITION, CALL LIGHT WITHIN REACH. WILL CONTINUE TO MONITOR.
[2018-05-10 07:43] LABS: CALCIUM 9.4 mg/dL (8.5-10.1); CARBON DIOXIDE 26.9 mmol/L (21-32); CREATININE SERUM 1.2 mg/dL (0.6-1.0); MAGNESIUM 1.9 mg/dL (1.8-2.4); POTASSIUM SERUM 4.4 mmol/L (3.5-5.1)
[2018-05-10 07:54] LABS: PLATELET COUNT 155 x10^3mcL (130-400)
[2018-05-10 07:56] LABS: RED CELL DISTRIBUTION WIDTH 15.6 % (11.5-14.5)
[2018-05-10 08:00] VITALS: BP 126/73
[2018-05-10 09:03] VITALS: BP 98/46
[2018-05-10 09:10] LABS: BAND NEUTROPHIL 3 % (0-10); BASOPHIL 0 % (0-2)
[2018-05-10 09:12] LABS: MONOCYTE 10 % (0-7)
[2018-05-10 09:13] LABS: SEGMENTED NEUTROPHILS 70 % (37-75)
[2018-05-10 09:14] LABS: PLATELET MORPHOLOGY PLATELETS NORMAL; rbc morphology (normal/abnorm) ABNORMAL (NORMAL)
--- NOTE | 2018-05-10 10:55 | NUR ---
PT WENT DOWN FOR MRI IN NO ACUTE DISTRESS.
--- NOTE | 2018-05-10 11:55 | NUR ---
PT BACK FROM MRI. NO ACUTE DISTRESS. SITTING UP IN CHAIR. BED LINEN CHANGED. PT GIVEN HAIR SHOWER CAP AND WIPES REQUESTED. CALL LIGHT WITHIN REACH. WILL CONTINUE TO MONITOR.
[2018-05-10 12:49] VITALS: BP 125/66
--- NOTE | 2018-05-10 15:52 | NUR ---
PT RESTING IN BED USING HER PHONE. NO ACUTE DISTRESS. STATES LEFT LEG PAIN IS TOLERABLE AT THIS TIME. LLE ELEVATED WITH 4 PILLOWS, DYLAN WRAP C/D/I. CALL LIGHT WITHIN REACH. WILL CONTINUE TO MONITOR.
--- NOTE | 2018-05-10 15:57 | NUR ---
PHYSICAL THERAPY DAILY NOTES CO-SIGN All documentation done by the [employer] for 05/10/18 has been reviewed. I agree with the documentation. Reviewed/Co-Signed by: Roberta Gil PT Documentation Done by:HEATHER SANDOVAL
[2018-05-10 16:26] VITALS: BP 118/64
--- NOTE | 2018-05-10 20:00 | NUR ---
RECEIVED PT IN BED, ALERT AND ORIENTED. ABLE TO VERBALIZE NEEDS. RESP. EVEN AND UNLABORED. LUNG SOUNDS CLEAR BILAT. ON ROOM AIR, NO ACUTE DISTRESS NOTED. AFEBRILE AND VITAL SIGNS STABLE. SR ON THE MONITOR, DENIES CP OR PRESSURE. IVF, NS AT 100ML/HR, INTACT AND INFUSING VIA RAC, SITE CLEAR. LLE REMAINS SWOLLEN, WRAPPED WITH DYLAN WRAP, INTACT AND ELEVATED ON PILLOW. PEDAL PULSES TO BLE PALPABLE. VOIDING FREELY. ASSISTED WITH HS CARE. CALL LIGHT WITHIN REACH. WILL CONTINUE TO MONITOR.
[2018-05-10 21:08] VITALS: BP 107/54
--- NOTE | 2018-05-10 23:38 | NUR ---
COMPLAINED OD PAIN TO LLE, 510, REQUESTING PAIN MED, MEDICATED WITH MORPHINE SULFATE ORDERED. PT ALSO REQUESTING XANAX FOR ANXIETY, MEDICATED ORDERED. KEPT COMFORTABLE. WILL CONTINUE TO MONITOR.
--- NOTE | 2018-05-11 02:13 | NUR ---
EYES CLOSED, APPEARS ASLEEP, EASILY AROUSABLE. RESP. EVEN AND UNLABORED. NO ACUTE DISTRESS NOTED. WILL CONTINUE TO MONITOR.
--- NOTE | 2018-05-11 03:52 | NUR ---
AWAKE AT THIS TIME, REQUESTING FOR PAIN MED, 08/30, MEDICATED WITH MORPHINE SULFATE IV ORDERED. LLE ELEVATED ON PILLOW. WILL CONTINUE TO MONITOR.
--- NOTE | 2018-05-11 04:56 | NUR ---
RESTING QUIETLY IN BED AT THIS TIME. NO COMPLAINTS NOTED. WILL CONTINUE TO MONITOR.
[2018-05-11 06:05] VITALS: BP 102/55
--- NOTE | 2018-05-11 06:29 | NUR ---
DUE MEDS GIVEN ORDERED, MIKEL. WELL. AFEBRILE AND VITAL SIGNS STABLE. RESP. EVEN AND UNLABORED, NO ACUTE DISTRESS NOTED. IVF INTACT AND INFUSING WELL, SITE CLEAR. NO COMPLAINTS OF PAIN OR ANY DISCOMFORT AT THIS TIME. LLE ELEVATED ON PILLOW. KEPT COMFORTABLE.BSC AT THE BEDSIDE, ENCOURAGED PT TO USE THE BEDSIDE COMMODE, BUT PT SOMETIMES PREFERES TO AMBULATE TO THE BATHROOM.VOIDING FREELY. WILL ENDORSE TO INCOMING NURSE.
[2018-05-11 06:48] LABS: PLATELET COUNT 135 x10^3mcL (130-400)
--- NOTE | 2018-05-11 07:10 | NUR ---
RECEIVED REPORT FROM [employer] EXAMINER NURSE. PT IS SITTING AT BEDSIDE. PT LOOKS TO BE IN NO ACUTE DISTRESS AT THIS TIME. WRAP TO LEFT LEG. IV TO RIGHT FOREARM INFUSING FLUIDS AND LOOKS PATENT WITH NO SIGNS OF REDNESS OR SWELLING. CALL LIGHT WITHIN REACH. WILL CONTINUE TO MONTIOR.
[2018-05-11 07:18] LABS: CALCIUM 9.1 mg/dL (8.5-10.1); CARBON DIOXIDE 26.4 mmol/L (21-32); CREATININE SERUM 1.2 mg/dL (0.6-1.0); POTASSIUM SERUM 4.8 mmol/L (3.5-5.1)
[2018-05-11 08:36] VITALS: BP 124/57
[2018-05-11 11:22] LABS: ATYPICAL LYMPH 8 %; BAND NEUTROPHIL 8 % (0-10); MONOCYTE 22 % (0-7); SEGMENTED NEUTROPHILS 44 % (37-75)
[2018-05-11 11:23] LABS: BASOPHIL 0 % (0-2); PLATELET MORPHOLOGY PLATELETS DECREASED; rbc morphology (normal/abnorm) ABNORMAL (NORMAL)
[2018-05-11 11:47] VITALS: BP 112/58
--- NOTE | 2018-05-11 13:06 | NUR ---
PT SITTING UP IN BED EATING LUNCH. LEFT LEG ELEVATED ON PILLOWS. PT LOOKS TO BE IN NO ACUTE DISTESS AT THIS TIME. PT STATES THAT PAIN HAS IMPROVED NOW THAT IT HAS BEEN ELEVATED. IV FLUIDS INFUSING, IV SITE LOOKS PATENT WITH NO SIGNS OF REDNESS OR SWELLING. CALL LIGHT WITHIN REACH. WILL COTINUE TO MALA.
[2018-05-11 16:58] VITALS: BP 128/76
--- NOTE | 2018-05-11 17:01 | NUR ---
PHYSICAL THERAPY DAILY NOTES CO-SIGN All documentation done by the Ghost Writer for 05/11/18 has been reviewed. I agree with the documentation. Reviewed/Co-Signed by: Roberta Gil PT Documentation Done by:HEATHER SANDOVAL
--- NOTE | 2018-05-11 18:20 | NUR ---
PT IS LAYING DOWN IN BED WITH HOB U ELEVATED. LEFT LEG IS ELEVATED ON 4 PILLOWS. PT STATES THAT WHEN THE LEG IS ELEVATED, THE PAIN IS MUCH BETTER. PT EDUCATED ON ELEVATING THE LEG ON A CHAIR WHEN SITTING UP EATING IN ORDER TO PREVENT THE PAIN ASSOCIATED WITH THE LEG BEING DEPENDENT. IV FLUIDS INFUSING TO THE RIGHT FOREARM. IV SITE IS PATENT WITH NO SIGNS OF REDNESS OR SWELLING. PT LOOKS TO BE IN NO ACUTE DISTRESS AT THIS TIME. CALL LIGHT WITHIN REACH. WILL ENDORSE TO ONCOMING SHIFT.
--- NOTE | 2018-05-11 19:55 | NUR ---
RECEIVED PT IN BED, RESTING QUIETLY , ALERT AND ORIENTED. RESP. EVEN AND UNLABORED. LUNG SOUNDS CLEAR BILAT. ON ROOM AIR, NO ACUTE DISTRESS NOTED. SR ON THE MONITOR, DENIES CHEST PAIN OR PRESSURE.LLE DRESSING DRY AND INTACT, ELEVATED ON PILLOW, ABLE TO MOVE EXTS, PEDAL PULSES PALPABLE.IVF, NS AT 100ML/HR, INTACT AND INFUSING VIA RAC, SITE CLEAR. ASSISTED WITH HS CARE. CALL LIGHT WITHIN REACH. WILL CONTINUE TO MONITOR.
[2018-05-11 21:00] VITALS: BP 133/71
--- NOTE | 2018-05-11 21:00 | NUR ---
COMPLAINED OF LLE PAIN, 11/30, REQUESTING MORPHINE SULFATE, MEDICATED ORDERED. WILL CONTINUE TO MONITOR.
--- NOTE | 2018-05-11 23:47 | NUR ---
EYES CLOSED, APPEARS ASLEEP, EASILY AROUSABLE. RESP. EVEN AND UNLABORED. NO ACUTE DISTRESS NOTED. WILL CONTINUE TO MONITOR.
--- NOTE | 2018-05-12 02:14 | NUR ---
AWAKE, COMPLAINING OF LLE PAIN, 8/10, MEDICATED WITH MORPHINE SULFATE IV ORDERED. LLE ELEVATED ON PILLOWS. CALL LIGHT WITHIN REACH. WILL CONTINUE TO MONITOR.
--- NOTE | 2018-05-12 04:11 | NUR ---
APPEARS COMFORTABLE. ASLEEP AT THIS TIME,.EASILY AROUSABLE. NO ACUTE DISTRESS NOTED. WILL CONTINUE TO MONITOR.
[2018-05-12 05:54] VITALS: BP 113/65
--- NOTE | 2018-05-12 06:09 | NUR ---
CONT. TO COMPLAIN OF LLE PAIN , MEDICATED ORDERED, WITH RELIEF. LLE ELEVATED ON PILLOWS. DRESSING DRY AND INTACT. RESP. EVEN AND UNLABORED. DENIES SOB, NO ACUTE DISTRESS NOTED. AFEBRILE AND VITAL SIGNS STABLE. DENIES CP OR PRESSURE. IVF INTACT AND INFUSING WELL, SITE CLEAR. DUE MEDS GIVEN ORDERED. MIKEL. WELL. VOIDING FREELY. CALL LIGHT WITHIN REACH . WILL CONTINUE TO MONITOR.
[2018-05-12 06:37] LABS: BASOPHIL % 0.5 % (0-2); PLATELET COUNT 145 x10^3mcL (130-400)
[2018-05-12 06:48] LABS: RED CELL DISTRIBUTION WIDTH 15.8 % (11.5-14.5)
[2018-05-12 06:59] LABS: CARBON DIOXIDE 28.3 mmol/L (21-32); CREATININE SERUM 1.3 mg/dL (0.6-1.0); MAGNESIUM 1.9 mg/dL (1.8-2.4); POTASSIUM SERUM 4.6 mmol/L (3.5-5.1)
--- NOTE | 2018-05-12 08:00 | NUR ---
AAO TIMES 4. PLEASANT. BRP, SLOW AND SHE SAYS IT IS PAINFUL TO WALK. THE LLE IS ELEVATED ON PILLOWS. TELE # 17 SR. LUNGS CTA. NO SOB, O2 SAT ON RA 97%. BS'S ACTIVE TIMES 4. KILLIAN, BRP SLOW STEADY GAIT, SHE LIMPS FROM THE LLE PAIN. SHE IS MEDICATED WITH MORPHINE Q 3 HOURS. DRESSING TO LLE CDI. +2 EDEMA LLE. TRACE EDEMA RLE. COOPERATIVE.
[2018-05-12 09:00] VITALS: BP 115/68
[2018-05-12 12:20] VITALS: BP 133/62
[2018-05-12 17:31] VITALS: BP 131/73
--- NOTE | 2018-05-12 17:31 | NUR ---
REMOVED DRESSING TO LLE INNER SCHINN AREA. WOUND IS DRIED WITHOUT DRAINAGE, AND IS SUPERFICIAL. A SCAB IS FORMING OVER IT WITHOUT UNDERMINING OR TUNNELING. APPLIED BETADINE ON WOUND AND ALSO ON STERILE 4" GAUZE TO WOUND, GAUZE WRAP, AND DYLAN WRAP PER MD PODIATRY ORDER FROM LAST DRESSING CHANGE.
--- NOTE | 2018-05-12 17:49 | NUR ---
DRESSING TO LLE CDI. IV SITE CDI. COOPERATIVE. NO C/O PAIN AT THIS TIME. TELE # 17 SR. SHE IS WATCHING TV. BED IN LOW POSITION, AND HER LLE IS ELEVATED ON PILLOWS THROUGH OUT THE DAY.
[2018-05-12 20:25] VITALS: BP 135/59
--- NOTE | 2018-05-12 22:02 | NUR ---
PT. C/O PAIN IN LLE. PRN MORPHINE GIVEN FOR PAIN LEVEL OF 7/10. PT. ALSO REQUESTING HER NIGHT DOSE OF XANAX. MEDICATION ALSO GIVEN. PT. ASSISTED TO BATHROOM AND BACK TO BED. STATED THAT PAIN LEVEL INCREASES WITH AMBULATION. WILL CONTINUE TO MONITOR. CALL LIGHT REMAINS WITHIN REACH.
--- NOTE | 2018-05-13 02:48 | NUR ---
PT. SLEEPING, SNORING. CALL LIGHT WITHIN REACH.
[2018-05-13 05:46] VITALS: BP 154/76
--- NOTE | 2018-05-13 06:47 | NUR ---
PT. AWAKENED AND WENT TO BATHROOM AND BACK TO BED. PAIN IN LLE INCREASED, PAIN MEDICATION MORPHINE IVP GIVEN ORDERED. PT. STATED PAIN LEVEL AT THIS TIME NOW DOWN FROM 8, TO 3/10. IVF INFUSING WELL, SITE REMAINS INTACT. CALL LIGHT WITHIN REACH. WILL ENDORSE PT. CARE TO INCOMING NURSE.
[2018-05-13 07:21] LABS: BASOPHIL % 0.3 % (0-2); PLATELET COUNT 176 x10^3mcL (130-400)
[2018-05-13 07:34] LABS: RED CELL DISTRIBUTION WIDTH 14.9 % (11.5-14.5)
[2018-05-13 07:39] LABS: CALCIUM 9.5 mg/dL (8.5-10.1); CARBON DIOXIDE 27.8 mmol/L (21-32); CREATININE SERUM 1.3 mg/dL (0.6-1.0); MAGNESIUM 2.1 mg/dL (1.8-2.4); POTASSIUM SERUM 4.5 mmol/L (3.5-5.1)
--- NOTE | 2018-05-13 07:50 | NUR ---
RECEIVED PATIENT SLEEPING IN BED, AROUSABLE. TELE MONITOR IN PLACE, DENIES CHEST PAIN. EDEMA NOTED TO LLE, EXTREMITIY MAINTAINED ELEVATED. LUNG SOUNDS CLEAR BILATERALLY. DRESSING TO LLE. NS IV INFUSING TO RAC AT 100ML/HR NO ERYTHEMA, EDEMA, OR PAIN NOTED. INSTRUCTED PATIENT TO CALL FOR ASSISTANCE WHEN NEEDED, CALL LIGHT WITHIN REACH. BED IN LOW POSITION, SIDE RAILS X2. WILL CONTINUE TO [facility].
[2018-05-13 09:00] VITALS: BP 105/69
--- NOTE | 2018-05-13 09:52 | NUR ---
PATIENT AMBULATED TO THE RESTROOM AND STATED SHE BEGAN TO FEEL PAIN 10/30 SHE WALKED BACK TO BED, REPOSITIONED PATIENT TO A COMFORTABLE POSITION, AND MEDICATED PATIENT WITH MORPHINE PER PROTOCOL ( SEE EMAR). WILL CONTINUE TO MONITOR AND MANAGE PAIN.
--- NOTE | 2018-05-13 13:38 | NUR ---
PATIENT C/O PAIN 09/29, PATIENT WAS UP WITH PHYSICAL THERAPY AND BEGAN TO FEEL PAIN TO THE LEFT LOWER EXTREMITY. MEDICATED PATIENT WITH MORPHINE PER PROTOCOL (SEE EMAR). WILL CONTINUE TO MONITOR PATIENT.
[2018-05-13 13:53] VITALS: BP 137/76
[2018-05-13 17:24] VITALS: BP 136/75
--- NOTE | 2018-05-13 18:00 | NUR ---
PATIENT RESTING IN BED, NO PAIN NOTED AT THIS TIME. NO ACUTE CHANGES THROUGH OUT SHIFT, PATIENT IS STABLE. DRESSING TO LLE INTACT. NS IV INFUSING TO RAC AT 100ML/HR, IV SITE CDI, NO REDNESS, PAIN OR SWELLING NOTED. WILL ENDORSE REPORT TO NIGHT NURSE. CALL LIGHT WITHIN REACH, BED IN LOW POSITION.
--- NOTE | 2018-05-13 20:00 | NUR ---
PT A/A/O X4. DENIES DIZZINESS AND HEADACHE. BREATH SOUNDS CLEAR. BREATHING EVEN AND UNLABORED ON ROOM AIR. DENIES CHEST PAIN AND PRESSURE. BOWEL SOUNDS ACTIVE. NO C/O N/V AND ABD PAIN. PITTING EDEMA NOTED ON LEFT LOEW EXTREMITY WITH DRESSING ON THE LEFT LEG C/D/I. LLE WARM TO TOUCH WITH SKIM GALEN. IV INTACT ON THE RAC INFUSING WITH NS AT 100 ML/HR. MADE PT COMFORTABLE. PLACED CALL LIGHT WITH IN REACH. WILL CONTINUE TO MONITOR.
[2018-05-13 20:36] VITALS: BP 117/58
--- NOTE | 2018-05-13 22:20 | NUR ---
PT C/O LLE PAIN. GAVE PT MORPHINE IVP. PT TOLERATED IT WELL. WILL CONTINUE TO MONITOR.
--- NOTE | 2018-05-13 23:32 | NUR ---
PT C/O FEELING ANXIOUS. GAVE PT XANAX PO. PT TOLERATED IT WELL. WILL CONTINUE TO MONITOR.
--- NOTE | 2018-05-14 02:38 | NUR ---
PT C/O LLE PAIN. GAVE PT NORCO PO. PT TOLERATED IT WELL. WILL CONTINUE TO MONITOR.
[2018-05-14 06:25] VITALS: BP 113/58
[2018-05-14 06:49] LABS: CALCIUM 8.6 mg/dL (8.5-10.1); CARBON DIOXIDE 25.8 mmol/L (21-32); CREATININE SERUM 1.3 mg/dL (0.6-1.0); POTASSIUM SERUM 4.9 mmol/L (3.5-5.1)
[2018-05-14 06:51] LABS: BASOPHIL % 0.9 % (0-2); PLATELET COUNT 136 x10^3mcL (130-400)
[2018-05-14 06:52] LABS: RED CELL DISTRIBUTION WIDTH 15.9 % (11.5-14.5)
--- NOTE | 2018-05-14 06:55 | NUR ---
PT QUIET AND RESTING. ADMIT TO DISCOMFORT ON THE LLE. DENIES NEED FOR PAIN MEDICATION. IV INTACT AND INFUSING ORDERED. MADE PT COMFORTABLE. WILL ENDORSE TO THE AM NURSE ACCORDINGLY.
--- NOTE | 2018-05-14 07:20 | NUR ---
RECIEVED PT FROM [facility]. PT AA/OX4. NO S/S OF ACUTE DISTRESS. NO CHEST PAIN. NO SOB ON ROOM AIR. DRESSING TO LLE CDI. PT ELEVATING LLE ON PILLOWS. IV WNL TO RAC, NO REDNESS, NO SWELLING, NO INFILTRATION. PATENT. IVF FLOWING. PT CALM/COOPERATIVE. COMPLAINT OF MILD LLE PAIN, RATES 5/10, REPORTS TOLERABLE AT THIS TIME. DECLINED TO PAIN MEDICATION. DESCRIBES ACHING. CONTINUOUS. WORSE WITH MOVEMENT/ACTIVITY. BED IN LOW POSITION. CALL LIGHT WITHIN REACH. WILL CONT. TO MONITOR.
[2018-05-14] MEDS ORDERED: CLEOCIN HCL300 MG PO (08:37)
[2018-05-14] MEDS ORDERED: ELIQUIS5 M1 PO (08:38)
[2018-05-14 09:10] VITALS: BP 119/57
[2018-05-14] MEDS ORDERED: LOTC TOP (10:08)
[2018-05-14 11:35] VITALS: BP 117/63
[2018-05-14 11:38] VITALS: BP 119/57
[2018-05-14] MEDS ORDERED: ACYCLOVIR200 MG (11:52)
--- NOTE | 2018-05-14 13:10 | NUR ---
PT DISCHARGED TO HOME. AWAKE, ALERT, ORIENTED X4. NO S/S OF ACUTE DISTRESS. NO COMPLAINT OF PAIN. NO SOB ON ROOM AIR. NO CHEST PAIN. DISCHARGE EDUCATION PROVIDED TO PATIENT. INSTRUCTED TO FOLLOW UP WITH PCP AT [facility]ING APPT. VERBALIZED UNDERSTANDING. IV WNL TO RAC, NO REDNESS, NO SWELLING, NO INFILTRATION. PATENT AND FLUSHES WELL. IV REMOVED, CATHETER IN TACT. PRESSURE APPLIED. SITE WNL. DRESSING TO LLE REMOVED, WOUND APPEARS DRY, SEE CHART FOR DISCHARGE PICTURES. PT HAS ECCHYMOSIS TO ABD, LUE, AND RLE. SEE CHART FOR PICTURES. BELONGINGS WITH PATIENT. TELE REMOVED. TAKEN BY WHEEL CHAIR TO DISCHARGE LOBBY BY BELEN BENITEZ. PRESCRIPTION WITH PATIENT.
--- NOTE | 2018-05-14 15:41 | NUR ---
PHYSICAL THERAPY DAILY NOTES CO-SIGN All documentation done by the Media Services Coordinator for 05/14/18 has been reviewed. I agree with the documentation. Reviewed/Co-Signed by: Roberta Gil PT Documentation Done by:HEATHER SANDOVAL
== END 2018-05-14 13:12 | disposition home or self-care (01) | DRG 197 ==
LOC: ED 20:46 → DU 05-03 00:23
PROVIDERS: Emergency Medicine; Family Medicine; ADMIT Internal Medicine
PROC: 0H9LXZZ Drainage of Left Lower Leg Skin, External Approach (ICD-10-PCS; principal; 2018-05-11)
DX: I82.412 Acute embolism and thrombosis of left femoral vein (principal); N17.0 Acute kidney failure with tubular necrosis; E44.1 Mild protein-calorie malnutrition; L02.416 Cutaneous abscess of left lower limb; C90.00 Multiple myeloma not having achieved remission; E83.51 Hypocalcemia; L03.116 Cellulitis of left lower limb; E78.5 Hyperlipidemia, unspecified; M10.9 Gout, unspecified; N18.9 Chronic kidney disease, unspecified; Z79.82 Long term (current) use of aspirin; Z88.1 Allergy status to other antibiotic agents; Z68.39 Body mass index [BMI] 39.0-39.9, adult
CPT/HCPCS: 83880; 97110-GP; 97116-GP; 97530-GP; J0696; J1650; J1885; J2020; J2270; J2540; J3490; J7030; J7060; J8540; Q0092

== ENCOUNTER 2018-05-15 18:59 | Emergency (ER) | payer OTHER ==
[~2018-05-15] VITALS: Ht 170.2 cm; Wt 102.5 kg
[~2018-05-15 18:59] MED LIST changes: +ACYCLOVIR200 MG; +ALPRAZOLAM1 MG PO; +APAP/HYDROCODON1 T13 PO; +ASPIRIN CHILDRE81 MG PO; +CLEOCIN HCL300 MG PO; +DEXAMETHASONE4 MG PO; +ELIQUIS5 M1 PO; +GRALISE600 MG PO; +LOTC TOP; +OXYCODONE HYDROC5 M2 PO; +REVLIMID5 MG PO
[2018-05-15 19:16] VITALS: Ht 170.2 cm; Wt 102.5 kg
[2018-05-15 20:48] VITALS: BP 139/60
== END 2018-05-15 20:48 | disposition home or self-care (01) ==
LOC: ED 18:59
DX: S40.022A Contusion of left upper arm, initial encounter (principal); I82.402 Acute embolism and thrombosis of unspecified deep veins of left lower extremity; X58.XXXA Exposure to other specified factors, initial encounter; Y93.89 Activity, other specified; Y92.89 Other specified places as the place of occurrence of the external cause; Y99.8 Other external cause status